=== PATIENT | male | born 1970 | race Caucasian/White ===

== ENCOUNTER → 2017-05-06 | Outpatient (CLI) | payer MEDICARE, MEDICAID ==
[~2017-05-06] MED LIST: AMLODIPINE10 M2 PO; CARVEDILOL 25MG25 MG PO; LEVEMIR FLEX100 U/ML SC; LISINOPRIL 5MG T5 MG PO; PRAVASTATIN 20M20 MG PO; RELION NOVOL100 U/M1 SQ; WARFARIN SODIUM4 MG PO
[2017-05-06 14:27] LABS: HEMOGLOBIN 11.4 g/dL (14.1-18.0); LYMPH # 0.8 K/mm3 (0.7-4.5); LYMPH % 11.1 % (10-50)
[2017-05-06 16:29] LABS: BUN 15 mg/dL (7-18)
[2017-05-06 16:46] LABS: GFR (ESTIMATED) 50 ML/MIN (>60)
== END ==
LOC: CARL-LAB 10:14
PROVIDERS: Internal Medicine Infectious Disease
DX: A41.4 Sepsis due to anaerobes (principal)

== ENCOUNTER → 2017-05-08 | Outpatient (CLI) | payer MEDICARE, MEDICAID ==
[~2017-05-08] MED LIST changes: +AMLO5TAB PO; +ASPIRIN 81MG TA81 MG PO; +GABAPENTIN 400400 MG PO
[2017-05-08 13:30] LABS: BUN 9 mg/dL (7-18); GFR (ESTIMATED) 59 ML/MIN (>60)
== END ==
LOC: CARL-LAB 09:07
PROVIDERS: Internal Medicine Infectious Disease
DX: A41.4 Sepsis due to anaerobes (principal); Z51.81 Encounter for therapeutic drug level monitoring

== ENCOUNTER → 2017-05-11 | Outpatient (CLI) | payer MEDICARE, MEDICAID ==
[2017-05-11 13:29] LABS: HEMOGLOBIN 11.6 g/dL (14.1-18.0); LYMPH # 1.3 K/mm3 (0.7-4.5); LYMPH % 17.1 % (10-50)
[2017-05-11 13:44] LABS: BUN 10 mg/dL (7-18)
[2017-05-11 14:06] LABS: GFR (ESTIMATED) 59 ML/MIN (>60)
== END ==
LOC: CARL-LAB 10:26
PROVIDERS: Internal Medicine Infectious Disease
DX: A41.4 Sepsis due to anaerobes (principal); Z51.81 Encounter for therapeutic drug level monitoring

== ENCOUNTER → 2017-05-18 | Outpatient (CLI) | payer MEDICARE, MEDICAID ==
[2017-05-18 13:39] LABS: HEMOGLOBIN 11.1 g/dL (14.1-18.0); LYMPH % 13.6 % (10-50)
[2017-05-18 14:37] LABS: BUN 9 mg/dL (7-18)
[2017-05-18 14:43] LABS: GFR (ESTIMATED) 54 ML/MIN (>60)
== END ==
LOC: CARL-LAB 10:14
PROVIDERS: Internal Medicine Infectious Disease
DX: A41.4 Sepsis due to anaerobes (principal); Z51.81 Encounter for therapeutic drug level monitoring

== ENCOUNTER 2017-05-22 12:20 | Outpatient (CLI) | payer MEDICARE, MEDICAID ==
[~2017-05-22 12:20] MED LIST changes: -AMLO5TAB PO; -ASPIRIN 81MG TA81 MG PO; -GABAPENTIN 400400 MG PO
[2017-05-22 12:46] VITALS: BP 169/87
[2017-05-22] MEDS ORDERED: AMLO5TAB PO (13:02)
[2017-05-22] MEDS ORDERED: CARVEDILOL 25MG25 MG PO (13:03)
[2017-05-22] MEDS ORDERED: LEVEMIR FLEX100 U/ML SC (13:05)
[2017-05-22] MEDS ORDERED: GABAPENTIN 400400 MG PO (13:06)
[2017-05-22] MEDS ORDERED: ASPIRIN 81MG TA81 MG PO (13:06)
[2017-05-22 13:15] VITALS: BP 157/84
[2017-05-22 13:30] VITALS: BP 156/85
== END 2017-05-22 13:35 | disposition home or self-care (01) ==
LOC: COP 12:20
DX: M86.472 Chronic osteomyelitis with draining sinus, left ankle and foot (principal)

== ENCOUNTER → 2017-05-25 | Outpatient (CLI) | payer MEDICARE, MEDICAID ==
[~2017-05-25] MED LIST changes: +AMLO5TAB PO; +ASPIRIN 81MG TA81 MG PO; +GABAPENTIN 400400 MG PO
[2017-05-25 13:50] LABS: BUN 31 mg/dL (7-18)
[2017-05-25 14:02] LABS: GFR (ESTIMATED) 29 ML/MIN (>60)
[2017-05-25 15:08] LABS: HEMOGLOBIN 10.3 g/dL (14.1-18.0); LYMPH # 0.5 K/mm3 (0.7-4.5); LYMPH % 16.2 % (10-50)
[2017-05-25 18:07] LABS: NEUTROPHILS 77 % (42-76)
== END ==
LOC: CARL-LAB 10:57
PROVIDERS: Internal Medicine Infectious Disease
DX: M86.472 Chronic osteomyelitis with draining sinus, left ankle and foot (principal); Z79.01 Long term (current) use of anticoagulants; Z51.81 Encounter for therapeutic drug level monitoring; Z79.899 Other long term (current) drug therapy

== ENCOUNTER → 2017-05-28 | Outpatient (CLI) | payer MEDICARE, MEDICAID ==
[2017-05-28 12:00] LABS: BUN 13 mg/dL (7-18); GFR (ESTIMATED) 54 ML/MIN (>60)
== END ==
LOC: CARL-LAB 09:09
PROVIDERS: Internal Medicine Infectious Disease
DX: M86.472 Chronic osteomyelitis with draining sinus, left ankle and foot (principal); Z79.01 Long term (current) use of anticoagulants; Z51.81 Encounter for therapeutic drug level monitoring

== ENCOUNTER → 2017-06-01 | Outpatient (CLI) | payer MEDICARE, MEDICAID ==
[2017-06-01 14:03] LABS: BUN 10 mg/dL (7-18)
[2017-06-01 14:05] LABS: GFR (ESTIMATED) 59 ML/MIN (>60)
[2017-06-01 14:15] LABS: HEMOGLOBIN 10.6 g/dL (14.1-18.0); LYMPH # 1.8 K/mm3 (0.7-4.5); LYMPH % 23.7 % (10-50)
== END ==
LOC: CARL-LAB 10:19
PROVIDERS: Internal Medicine Infectious Disease
DX: M86.472 Chronic osteomyelitis with draining sinus, left ankle and foot (principal); Z79.01 Long term (current) use of anticoagulants; Z51.81 Encounter for therapeutic drug level monitoring

== ENCOUNTER → 2017-06-08 | Outpatient (CLI) | payer MEDICARE, MEDICAID ==
[2017-06-08 13:29] LABS: LYMPH # 1.5 K/mm3 (0.7-4.5); LYMPH % 20.5 % (10-50)
[2017-06-08 13:52] LABS: BUN 18 mg/dL (7-18)
[2017-06-08 13:55] LABS: GFR (ESTIMATED) 50 ML/MIN (>60)
== END ==
LOC: CARL-LAB 09:56
PROVIDERS: Internal Medicine Infectious Disease
DX: M86.472 Chronic osteomyelitis with draining sinus, left ankle and foot (principal); Z79.01 Long term (current) use of anticoagulants; Z51.81 Encounter for therapeutic drug level monitoring; Z79.899 Other long term (current) drug therapy